=== PATIENT | male | born 1955 | race Caucasian/White ===

== ENCOUNTER 2017-05-05 15:48 | Observation (INO) | payer OTHER ==
--- NOTE | ~2017-05-05 | HP ---
History And Physical [place] [id number] [facility] [place]. [address] NAME: KOLE STEVENS : 55 STATUS : ADM [place] PAT#: [id number] AGE: 61 ADM/REG DATE : 05/05/17 MR#: [id number] REPORT SERV DATE: 05/06/17 DICTATED BY: NELLA MARTIN DATE: 05/06/17 REPORT STATUS : Draft TRANSCRIBED BY: SIL DATE: 05/06/17 DATE OF ADMISSION: 05/05/2017 CHIEF COMPLAINT: Atypical chest pain. HISTORY OF PRESENT ILLNESS: A very pleasant 61-year-old white gentleman with no known history of CAD. 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 He thought it was GERD since he had not eaten anything, ate some crackers that did not help. He completed his day seeing patients and was evaluated by his overseeing physician. An EKG was performed that was within normal limits and a sublingual nitroglycerin was provided with no improvement in his symptoms. At its most intense, the chest pain was rated an 8/10. At time of interview in the [facility], he is pain-free. He states that the chest pain lasted hours in duration and was not improved by topical Nitrol paste as well. There is apparently no exertional component and no pattern with meals, and the chest pain is not aggravated by movement or palpation. The patient denies any personal history of myocardial infarction, stroke, DVT, or pulmonary embolus. The patient denies any recent fever or chills. No palpitations. No syncopal episodes. Denies PND or orthopnea. PAST MEDICAL HISTORY: 1. Hypertension. 2. Tobacco abuse. 3. Positive family history for early stroke. 4. Anxiety. 5. Denies dyslipidemia or diabetes. 6. Sarcoidosis, stage I, per report. PAST SURGICAL HISTORY: 1. Fasciotomy, bilateral lower extremities, 2000. 2. LASIK surgery. SOCIAL HISTORY: He is with one child. 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 Does not have a structured exercise routine. Smokes one-half pack per day for 30 plus years. Rarely consumes alcohol. Denies illicits. FAMILY HISTORY: Mother with a stroke at 61, at the age of 64 of cancer. Father remains alive at the age of 93 with a pacemaker. REVIEW OF SYSTEMS: A 14-point review of systems performed, significant for HPI including previous cardiac workup several years ago including an echo, multiple stress tests, and a negative cardiac catheterization while in the in [place]. Otherwise, complete review of systems obtained and negative. History And Physical [address] [address] NAME: KOLE STEVENS : 55 STATUS : ADM [place] PAT#: [id number] AGE: 61 ADM/REG DATE : 05/05/17 MR#: [id number] REPORT SERV DATE: 05/06/17 DICTATED BY: NELLA MARTIN DATE: 05/06/17 REPORT STATUS : Draft TRANSCRIBED BY: SIL DATE: 05/06/17 ALLERGIES: NO KNOWN DRUG ALLERGIES. MEDICATIONS: Home Medicines: Xanax 1 mg nightly and lisinopril 10 mg daily. PHYSICAL EXAMINATION: BLOOD PRESSURE: Bilateral blood pressures on arrival, right and left 130/72, this morning 112/61. PULSE: 72. RESPIRATORY RATE: 18. TEMPERATURE: 98.1. O2 saturation 94% on room air. HEIGHT: 5 feet 6 inches. WEIGHT: 149 pounds. BMI 24. GENERAL: Cooperative, in no apparent distress. HEENT: Pupils 2 mm, sclera nonicteric. Nares patent. Moist mucous membranes. No xanthelasma. NECK: Trachea midline, no thyromegaly. No JVD. No bruits. LYMPH: No cervical lymphadenopathy. No supraclavicular lymphadenopathy. RESPIRATORY: Unlabored respirations. Breath sounds clear bilaterally to posterior auscultation. No wheezes or rhonchi. CARDIOVASCULAR: Regular rate. No murmur, rub or gallop appreciated. Extremities without edema. Pulses 2+ bilaterally. ABDOMEN: Soft, nontender, nondistended, normal bowel sounds auscultated throughout. No organomegaly. SKIN: Warm, dry extremities. No pallor, or cyanosis. PSYCHIATRIC: Appropriate affect. Alert, oriented x3. LABORATORY DATA: Troponin less than 0.02 twice. Potassium 4.6, BUN 12, creatinine 0.99, glucose 97, magnesium 2.2, WBC 15.1, hemoglobin 15.1, hematocrit 44.7, and platelet count 322,000. EKG: Sinus rhythm with a rare PAC. ASSESSMENT AND PLAN: 1. Atypical chest pain. The patient has been observed in the CP[facility] overnight to rule out myocardial infarction with serial enzymes and serial EKGs and held n.p.o. We will proceed with an MPI today. The patient will be discharged home if low risk, no ischemia. If anything suggestive of ischemia, Cardiology referral will be initiated. Otherwise, the patient will be asked to follow up with PCP in one to two weeks with all studies being sent to that office. 2. Hypertension, well controlled, continue home medications. 3. Ongoing tobacco use, counseled regarding cessation. LINDA/SIL LAUREL Esposito, TELECOM ASSISTANT-BC / [id number] CC: History And Physical [address] [address] NAME: KOLE STEVENS : 55 STATUS : ADM [place] PAT#: [id number] AGE: 61 ADM/REG DATE : 05/05/17 MR#: [id number] REPORT SERV DATE: 05/06/17 DICTATED BY: NELLA MARTIN DATE: 05/06/17 REPORT STATUS : Draft TRANSCRIBED BY: MODL DATE: 05/06/17 LAUREL Esposito, TELECOM ASSISTANT-BC Danielle Garrett M.D.
[2017-05-05 17:01] LABS: INTERNATIONAL NORMAL RATI 1.1 UNITS (-); PARTIAL THROMBO TIME 29.8 SEC (22.5-37.2); PROTIME (NOT ORD) 13.8 SEC (12.0-14.5)
[2017-05-05] MEDS ORDERED: PRIN10 PO (17:06)
[2017-05-05 17:07] LABS: BASOPHILS 0.4 %; BASOPHILS ABSOLUTE 0.06 10/3/uL (0.0-0.16); EOSINOPHILS 3.2 %; EOSINOPHILS ABSOLUTE 0.49 10/3/uL (0.0-0.53); ER CBC TAT 0 Hrs 19 Mins; HEMATOCRIT 44.7 % (40.0-51.0); HEMOGLOBIN 15.1 g/dL (13.6-17.8); IMMATURE GRANULOCYTES 0.6 %; IMMATURE GRANULOCYTES ABSOLUTE 0.09 10/3/uL (0.0-0.11); LYMPHOCYTES 24.4 %; LYMPHOCYTES ABSOLUTE 3.68 10/3/uL (0.67-4.30); MANUAL DIFF NO %; MEAN CORPUS HGB CONC 33.8 g/dL (32.0-36.0); MEAN CORPUSCULAR HEMOGLOB 31.2 pg (26.0-34.0); MEAN CORPUSCULAR VOLUME 92.4 fL (80-100); MEAN PLATELET VOLUME 10.1 fL (9.2-13.0); MONOCYTES 5.9 %; MONOCYTES ABSOLUTE 0.89 10/3/uL (0.21-1.20); NEUTROPHILS 65.5 %; PLATELET COUNT 322 10/3/uL (150-400); RED CELL COUNT 4.84 10/6/uL (4.7-6.1); WHITE BLOOD CELLS 15.1 10/3/uL (4.5-10.5)
[2017-05-05] MEDS ORDERED: XANAX1 MG PO (17:07)
[2017-05-05 17:10] LABS: BUN (BLOOD UREA NITROGEN) 12 MG/DL (6-23); CALCIUM, SERUM 9.2 MG/DL (8.5-10.4); CHEST PAIN PROFILE TAT 0 Hrs 22 Mins; CHLORIDE, SERUM 105 MMOL/L (96-112); CO2 (CARBON DIOXIDE) 30 MMOL/L (24-34); CREATININE 0.99 MG/DL (0.70-1.30); GFR AFRICAN AMERICAN 95 ML/MIN (>=60); GFR NON AFRICAN AMERICAN 82 ML/MIN (>=60); GLUCOSE, SERUM 97 MG/DL (60-99); POTASSIUM, SERUM 4.6 MMOL/L (3.5-5.3); SODIUM, SERUM 140 MMOL/L (135-148); TROPONIN I <0.02 NG/ML (<0.05)
== END 2017-05-06 14:06 | disposition home or self-care (01) ==
LOC: ER 15:48 → ER/OF 19:21 → CDU1 20:28 → CDU2 22:44
PROVIDERS: Emergency Medicine
DX: R07.89 Other chest pain (principal); I10 Essential (primary) hypertension; F17.290 Nicotine dependence, other tobacco product, uncomplicated; F41.9 Anxiety disorder, unspecified; D86.9 Sarcoidosis, unspecified; Z82.3 Family history of stroke; Z80.9 Family history of malignant neoplasm, unspecified; Z79.899 Other long term (current) drug therapy; Z98.890 Other specified postprocedural states
CPT/HCPCS: 71010; 78452; 80048; 83735; 84484; 85025; 85610; 85730; 93005; 93017; 99285; A9270-GY; A9502; G0378